=== PATIENT | male | born 1960 | race Caucasian/White ===

== ENCOUNTER 2016-08-28 18:47 | Emergency (ER) | payer OTHER ==
--- NOTE | 2016-08-28 19:23 | EDPHY ---
H & P Stated Complaint: R Ankle Injury HPI/ROS: CHIEF COMPLAINT: Right ankle pain HISTORY OF PRESENT ILLNESS: reports slipping on the ice earlier this morning with an inversion injury to the ankle. Since then he has had pain over the lateral ankle. Mild to moderate. Able to walk painful to do so. Does not radiate. No numbness or tingling. No abrasions or contusions. No injury to the ipsilateral knee. No pain in the proximal fibula. No injuries elsewhere. No head or neck injury or loss conscious. No other associated complaints or modifying factors. REVIEW OF SYSTEMS: Ten systems reviewed and are negative unless otherwise noted in the HPI EXAMINATION General Appearance: Alert, no distress . Unkempt Head: normocephalic, atraumatic. No depression or deformities. No Nichols sign. No raccoon eyes Eyes: Pupils equal and round, no conjunctival pallor or injection ENT, Mouth: Mucous membranes moist Neck: Normal inspection Respiratory: No dyspnea or retractions. No distress Cardiovascular: Pulses normal throughout with symmetric DP and PT pulses. Brisk cap refill Gastrointestinal: No distention Neurological: A&O, sensory symmetric, strength symmetric Skin: Warm and dry, no rash Extremities: Tenderness to palpation of the right lateral malleolus with edema. No ecchymosis, laceration or abrasion. No tenderness of the proximal fibula. Range of motion intact but painful at the lateral malleolus. No tenderness elsewhere. Neurovascular intact distal to the ankle swelling and pain. Psychiatric: Mood and affect normal DIFFERENTIAL DIAGNOSES: Including but not limited to: Sprain, fracture, contusion, dislocation MDM: mechanical fall with inversion injury to the ankle. On my interpretation of the x-ray, there may be a very subtle avulsion off the distal fibula. This is only seen on one view. The other views are unremarkable. He has no tenderness over the tibia. We will place a Lozano doing await the official radiology report. 7:43 p.m. x-ray reveals a subtle, chip fracture off the talus. I will discuss with Orthopedics for definitive management. 7:55 p.m. I have discussed case with Orthopedics, Dr. Saucedo. he recommended CT scan to further delineate. He informed me that the patient is weight-bearing as tolerated regardless of the findings on CT scan. Patient may be discharged home with a Carter boot and follow up in his office later this week or next week. CT scan has been ordered. 8:[address] scan with the radiologist. He informed me that there are 3, acute chip fracture of the lateral process of the talus. No other bony abnormalities. It is discharged home in a boot weight-bearing as tolerated. We will add crutches should he be painful when ambulating discharge. He will follow up with Dr. Saucedo for definitive care. ED Precautions: Worsening pain. Erythema, edema, cyanosis, pallor, paresthesia or anesthesia. SUPERVISION: This patient was independently evaluated without the aide of supervising physician. Source: Patient Exam Limitations: No limitations - Personal History Current Tetanus Diphtheria and Acellular Pertussis (TDAP): Unsure - Medical/Surgical History Hx Asthma: No Hx Chronic Respiratory Disease: No Hx Diabetes: No Hx Cardiac Disease: No Hx Renal Disease: No Hx Cirrhosis: No Hx Alcoholism: No Hx HIV/AIDS: No Hx Splenectomy or Spleen Trauma: No Other PMH: asthma - Social History Smoking Status: Current every day smoker Constitutional: Initial Vital Signs Temperature (C) 97.5 F 08/28/16 18:50 Heart Rate 81 08/28/16 18:50 Respiratory Rate 18 08/28/16 18:50 Blood Pressure 137/86 H 08/28/16 18:50 O2 Sat (%) 94 08/28/16 18:50 O2 Delivery Mode Room Air Allergies/Adverse Reactions: No Known Allergies Allergy (Unverified 08/28/16 18:50) Home Medications: Medication Instructions Recorded Albuterol 08/28/16 Departure - Departure Disposition: Home, Routine, Self-Care Clinical Impression: Right ankle sprain Qualifiers: Encounter type: initial encounter Involved ligament of ankle: unspecified ligament Qualifier Code: (S93.401A) Sprain of unspecified ligament of right ankle, initial encounter Fracture of talus Qualifiers: Encounter type: initial encounter Fracture type: closed Talus location: posterior process Fracture alignment: displaced Laterality: right Qualifier Code : (S92.131A) Displaced fracture of posterior process of right talus, initial encounter for closed fracture Condition: Good Instructions: Ankle Sprain (ED) Referrals: NONE *PRIMARY CARE P,. [Primary Care Provider] - As per Instructions Master Saucedo MD [Medical Doctor] - 5-7 days, if not improved
--- NOTE | 2016-08-28 19:30 | DX ---
Right ankle - 3 views Indication: Trauma. Technique: AP, mortise, and lateral views. Comparison: None Findings: The bones are anatomically aligned. The AP view reveals 2 small, 3 mm, cortical bone fragme nts along the lateral base of the talus just inferior to the fibula. No distal fibular or tibial frac ture. Moderate lateral soft tissue swelling. The ankle mortise is preserved. A tiny enthesophyte eman ates off the posterior body of the calcaneus at the insertion of the Achilles tendon. IMPRESSION: 1. Acute nondisplaced cortical chip fractures along the inferior lateral body of the talus. 2. Intact mortise.
[2016-08-28 20:23] VITALS: BP 104/63; PULSE 80; RESP 16; TEMP 97.9; O2SAT 92
--- NOTE | 2016-08-28 20:49 | CT ---
CT Right Ankle, Without Contrast INDICATION: Trauma. Lateral talar chip fractures. TECHNIQUE: 1.25-mm thick helically acquired slices were obtained through the ankle. The data was re constructed in soft tissue and bone algorithm in the axial plane and in the bone algorithm in sagitta l and coronal planes. COMPARISON: Ankle series performed earlier today. FINDINGS: Two acute chip fractures are present along the posterolateral aspect of the talus just inf erior to the fibula. The fracture fragments appear to be acute, with a noncorticated donor site. Th e two tiny chip fragments measure 5 x 2.5 mm each on image #74 of series #2. A third 10- x 2.5-mm fr acture fragment more anteriorly along the lateral body of the talus may be subacute as the donor site has minimal amorphous sclerosis. No other fractures. Moderate soft tissue swelling overlies the la teral body of the talus. Several small gas bubbles along the anterior and posterior aspect of the ti biotalar joint are likely a vacuum effect as there is no history of penetrating injury. The ankle mortise is intact. No acute distal tibial or fibular fracture. The calcaneus is intact an d anatomically aligned. No derangement of the subtalar joints. IMPRESSION: 1. Acute cortical chip fracture along the posterolateral body of the talus. 2. Acute versus subacute chip fracture off the anterolateral body of the talus. 3. Well-preserved ankle mortise and subtalar joints. Comment: Results were discussed with John Pickering PA-C, at 8:25 p.m. on August 28, 2016. E:SHERLY/vane
== END 2016-08-28 20:37 | disposition home or self-care (01) ==
DX: S92.131A Displaced fracture of posterior process of right talus, initial encounter for closed fracture (principal); S93.401A Sprain of unspecified ligament of right ankle, initial encounter; F17.200 Nicotine dependence, unspecified, uncomplicated; J45.909 Unspecified asthma, uncomplicated; W18.49XA Other slipping, tripping and stumbling without falling, initial encounter; Y93.89 Activity, other specified
CPT/HCPCS: L4386

== ENCOUNTER 2017-01-30 18:22 | Emergency (ER) | payer MEDICAID ==
--- NOTE | 2017-01-30 19:03 | EDPHY ---
H & P Smoking Status: Current every day smoker Time Seen by Provider: 01/30/17 18:34 HPI/ROS: CHIEF COMPLAINT: Possible bedbug infestation HISTORY OF PRESENT ILLNESS: 56-year-old homeless male was found sleeping on a lawn, was noted to be likely intoxicated in taking the [facility] however he was diverted to the emergency department after he stated that he had been infested with bedbugs. Notes that he will intermittently itch. He has no complaints of pain. She PHYSICAL EXAM (Prior to examination, patient consented to physical exam, hands were washed and my usual and customary physical exam procedures followed) 1) GENERAL: poorly kept, dirty, sleeping, easily woken, , alert and oriented. Appears to be in no acute distress. 2) HEAD: Normocephalic 3) HEENT: sclera anicteric 4) LUNGS: Breathing comfortably. 5) SKIN: [ patient will not allow me to examine his skin beyond what I can visualize on is exposed (Lydia Young) Constitutional: Initial Vital Signs Temperature (C) 36.4 C 01/30/17 18:33 Heart Rate 84 01/30/17 18:33 Respiratory Rate 16 01/30/17 18:33 Blood Pressure 115/77 01/30/17 18:33 O2 Sat (%) 90 L 01/30/17 18:33 O2 Delivery Mode Room Air Allergies/Adverse Reactions: No Known Allergies Allergy (Unverified 08/28/16 18:50) Home Medications: Medication Instructions Recorded Albuterol 08/28/16 MDM/Departure - [facility] ED Course/Re-evaluation: The patient would like to leave the emergency department. He is clinically sober awake alert oriented person place time events, clear speech pattern, stable steady gait. He does not want treatment for possible scabies. (Lydia Young) The patient was evaluated and managed by the physician physician assistant psychiatry. I have reviewed this chart and I agree with the findings and plan of care as documented , as indicated by my signature. I am the secondary supervising physician. ( Keshia Yost) - Depart Disposition: Home, Routine, Self-Care Clinical Impression: Bed bug bite Qualifiers: Encounter type: initial encounter Qualified Code(s): W57.XXXA - Bitten or stung by nonvenomous insect and other nonvenomous arthropods, initial encounter Condition: Good Instructions: Bed Bugs (ED) Referrals: [facility],. [Clinic] - 1-2 days without fail
[2017-01-30 19:17] VITALS: BP 104/87; PULSE 78; RESP 20; TEMP 98.1; O2SAT 97
== END 2017-01-30 19:17 | disposition home or self-care (01) ==
DX: L29.9 Pruritus, unspecified (principal); F17.200 Nicotine dependence, unspecified, uncomplicated